=== PATIENT | female | born 1965 ===

== ENCOUNTER → 2020-08-08 15:00 | Outpatient (CLI) | payer OTHER | END | disposition home or self-care (01) | LOC: PPH VACUNA 15:00 | DX: Z23 Encounter for immunization (principal) ==

== ENCOUNTER 2020-08-30 08:00 | Outpatient (CLI) | payer OTHER | END 2020-08-30 08:30 | disposition home or self-care (01) | LOC: PPH VACUNA 08:00 | DX: Z23 Encounter for immunization (principal) ==

== ENCOUNTER 2024-05-31 14:45 | Inpatient (IN) | payer OTHER ==
[~2024-05-31] VITALS: Ht 152.4 cm; Wt 40.8 kg
[2024-05-31 15:38] LABS: ABG PO2 94.1 mmHg (80-100); ABG pCO2 20.7 mmHg (35-45); BASE EXCESS 0.5 mmol/l; BICARBONATE 19.7 mmol/l (23-25); SaO2 98.5 %; Tco2 20.4 mmol/l
[2024-05-31 15:58] LABS: ABG PH 7.596 (7.35-7.45); allen test SATISFACTORY; o2 21 %; puncture site RADIAL LEFT
--- NOTE | 2024-05-31 16:02 | NUR ---
SE RECIBE PTE ALERTA Y ORIENTADA X3 EN COMPANIA DE PARAMEDICOS A UNIDAD DE CRITICO. PTE REFIERE VENIR POR DOLOR DE CUERPO GENERALIZADO. SE DEJUAN SV SPO2 99% AL MOMENTO DE TRIAGE. SE UBICA A PTE CONECTADA A MONITOR CARDIACO Y OXIMETRIA DE PULSO CONTINUA. SE REALIZA EKG PUL 124. SE PRESENTA EKG A DRA. HERRERA. SE NOTIFICAN ABG A TERAPISTA ALDO.
[2024-05-31] MEDS ORDERED: 0.9 % SODIUM CHLORIDE 1,000 ML IV STA (16:46)
[2024-05-31 17:18] LABS: MEAN CELL VOLUME 115.3 fL (80.00-100.00); MEAN CORPUSCULAR HEMOGLOBIN 36.6 pg (27.00-32.0); MEAN CORPUSCULAR HGB CONC 31.9 g/dl (32.0-36.0); PLATELET COUNT 513 K/uL (150-450); RED BLOOD COUNT 1.53 M/uL (4.00-6.00); RED CELL DISTRIBUTION WIDTH 21.7 % (11.5-14.5)
[2024-05-31 17:20] LABS: HEMATOCRIT 17.6 % (36.0-45.00); HEMOGLOBIN 5.6 g/dL (12.0-15.00)
[2024-05-31 17:40] LABS: ALBUMIN 2.6 gm/dL (3.4-5.0); BILIRUBIN TOTAL 1.78 mg/dL (0.3-1.2); CALCIUM 8.3 mg/dL (8.5-10.1); CREATININE SERUM 0.66 mg/dL (0.55-1.02); GFR 92.64; GLOBULINA 6.5 G/DL (2.4-3.5); POTASSIUM 4.32 mEq/L (3.5-5.1); TOTAL PROTEIN 9.1 gm/dL (6.4-8.2)
[2024-05-31] MEDS ORDERED: THIAMINE HCL 100 MG/ML 2 ML VIAL IV SCH (18:59)
[2024-05-31] MEDS ORDERED: CEFTRIAXONE SODIUM 1,000 MG in DEXTROSE 5 % IN WATER 100 ML IV ONE (19:00)
[2024-05-31] MEDS ORDERED: PANTOPRAZOLE SODIUM 40 MG/VIAL VIAL IV ONE (19:00)
[2024-05-31] MEDS ORDERED: OSELTAMIVIR PHOSPHATE 75 MG CAPSULE PO SCH (19:01)
[2024-05-31] MEDS ORDERED: ONDANSETRON HCL 4 MG in 0.9 % SODIUM CHLORIDE 50 ML IV PRN (19:15)
[2024-05-31] MEDS ORDERED: 0.9 % SODIUM CHLORIDE 1,000 ML IV SCH (19:15)
[2024-05-31] MEDS ORDERED: PANTOPRAZOLE SODIUM 80 MG in 0.9 % SODIUM CHLORIDE 100 ML IV SCH (19:15)
[2024-05-31 20:20] LABS: BILIRUBIN TOTAL 1.47 mg/dL (0.3-1.2); BILIRUBIN,CONJUGATED 0.4 mg/dL (0.0-0.2); BILIRUBIN,UNCONJUGATED 1.07 mg/dL (0.0-0.6)
[2024-05-31 20:27] LABS: C-REACTIVE PROTEIN 2.28 MG/DL (0.00-0.29)
[2024-05-31 20:29] LABS: INR 1.23; PARTIAL THROMBOPLASTIN TIME 27.7 SECONDS (22.0-34.0); PROTHROMBIN TIME 13.2 SECONDS (9.0-11.5)
[2024-05-31] MEDS ORDERED: THIAMINE HCL 100 MG/ML 2 ML VIAL ONE (22:17)
[2024-05-31] MEDS ORDERED: OSELTAMIVIR PHOSPHATE 75 MG CAPSULE PO ONE (22:17)
[2024-05-31 23:37] VITALS: BP 111/64; O2SAT 100
[2024-06-01] VITALS (14 sets, daily range): BP systolic 85–150; BP diastolic 53–87; O2SAT 96–100
[2024-06-01 03:24] LABS: URINE APPEARANCE Clear; URINE BILIRRUBIN Negative (NEGATIVE); URINE BLOOD Negative; URINE COLOR Yellow; URINE GLUCOSE Negative (NEGATIVE); URINE KETONE Negative (NEGATIVE); URINE LEUKOCYTE Negative; URINE NITRATE Negative; URINE PROTEIN Trace (NEGATIVE)
[2024-06-01 03:28] LABS: URINE BACTERIA 48.9 uL (0.0-1933); URINE EPITHELIAL CELLS 11.7 uL (0.0-38.8); URINE RBC 3.3 uL (0.0-20.8); URINE WBC 3.4 uL (0.0-23.2)
[2024-06-01 03:36] LABS: URINE CAST 0.29 uL (0.0-1.40)
[2024-06-01] MEDS ORDERED: CEFTRIAXONE SODIUM 2,000 MG in 0.9 % SODIUM CHLORIDE 100 ML IV SCH (09:00)
[2024-06-01] MEDS ORDERED: CHLORDIAZEPOXIDE HCL 25 MG CAPSULE PO SCH (09:00)
[2024-06-01] MEDS ORDERED: DIVALPROEX SODIUM 250 MG TABLET.DR PO SCH (09:00)
[2024-06-01] MEDS ORDERED: IRON FUM,PS/FOLIC/BCOMP,C NO.9 1 CAP CAPSULE PO SCH (09:00)
[2024-06-01 10:36] LABS: FOLIC ACID > 20.00 ng/ml (4.78-20)
[2024-06-01 14:12] LABS: C-REACTIVE PROTEIN 2.4 MG/DL (0.00-0.29)
[2024-06-01] MEDS ORDERED: NOREPINEPHRINE BITARTRATE 8 MG in DEXTROSE 5 % IN WATER 250 ML IV SCH (15:00)
[2024-06-01] MEDS ORDERED: METHYLPREDNISOLONE SOD SUCC 125 MG VIAL IV STA (19:05)
[2024-06-01] MEDS ORDERED: METHYLPREDNISOLONE SOD SUCC 125 MG VIAL ONE (21:42)
[2024-06-01 22:12] LABS: ob NEGATIVE (NEGATIVE)
[2024-06-02] MEDS ORDERED: METHYLPREDNISOLONE SOD SUCC 40 MG VIAL IV SCH
[2024-06-02 04:00] VITALS: BP 105/70
[2024-06-02 07:23] VITALS: BP 105/67; O2SAT 98
[2024-06-02 07:57] LABS: PH,URINE 6.5 (5.0-8.0); URINE APPEARANCE Clear; URINE BILIRRUBIN Negative (NEGATIVE); URINE BLOOD Moderate; URINE COLOR Yellow; URINE GLUCOSE Negative (NEGATIVE); URINE KETONE Negative (NEGATIVE); URINE LEUKOCYTE Negative; URINE NITRATE Negative; URINE PROTEIN Trace (NEGATIVE)
[2024-06-02 07:58] LABS: URINE BACTERIA 127.2 uL (0.0-1933); URINE EPITHELIAL CELLS 4.1 uL (0.0-38.8); URINE RBC 261.1 uL (0.0-20.8); URINE WBC 11.6 uL (0.0-23.2)
[2024-06-02 08:01] LABS: URINE CAST 0.88 uL (0.0-1.40)
[2024-06-02 12:00] VITALS: BP 99/64; O2SAT 97
[2024-06-02 15:02] VITALS: BP 107/69; O2SAT 95
[2024-06-02 16:35] LABS: ob POSITIVE (NEGATIVE)
[2024-06-02 20:00] VITALS: BP 104/65; O2SAT 95
[2024-06-02 23:08] VITALS: BP 111/73
[2024-06-03 03:57] VITALS: BP 113/73; O2SAT 100
[2024-06-03 07:16] LABS: MEAN CELL VOLUME 118.3 fL (80.00-100.00); MEAN CORPUSCULAR HGB CONC 31.3 g/dl (32.0-36.0); PLATELET COUNT 314 K/uL (150-450); RED BLOOD COUNT 1.17 M/uL (4.00-6.00)
[2024-06-03 07:25] VITALS: BP 136/84; O2SAT 100
[2024-06-03 07:31] LABS: MEAN CORPUSCULAR HEMOGLOBIN 37.6 pg (27.00-32.0)
[2024-06-03 07:32] LABS: HEMATOCRIT 13.9 % (36.0-45.00); HEMOGLOBIN 4.4 g/dL (12.0-15.00); RED CELL DISTRIBUTION WIDTH 26.4 % (11.5-14.5)
[2024-06-03] MEDS ORDERED: EPOETIN ALFA-EPBX 10,000 UNIT/ML VIAL (Retacrit) SUBCUTANEO SCH (09:00)
[2024-06-03] MEDS ORDERED: FOLIC ACID 1 MG TABLET PO SCH (09:00)
[2024-06-03 10:05] LABS: IMMUNOGLOBULIN A 754 mg/dL (87-352); IMMUNOGLOBULIN G 3074 mg/dL (586-1602); IMMUNOGLOBULIN M 191 mg/dL (26-217)
[2024-06-03] MEDS ORDERED: ACETAMINOPHEN 500 MG GEL..CAP PO ONE (11:34)
[2024-06-03] MEDS ORDERED: ACETAMINOPHEN 500 MG GEL..CAP PO PRN (11:45)
[2024-06-03] MEDS ORDERED: METHYLPREDNISOLONE SOD SUCC 40 MG VIAL IV SCH (11:45)
[2024-06-03] MEDS ORDERED: DIPHENHYDRAMINE HCL 50 MG/ML VIAL 1ML IV SCH (11:45)
[2024-06-03 12:00] VITALS: BP 113/70
[2024-06-03] MEDS ORDERED: METHYLPREDNISOLONE SOD SUCC 40 MG VIAL IV NR (12:00)
[2024-06-03] MEDS ORDERED: DIPHENHYDRAMINE HCL 50 MG/ML VIAL 1ML IV NR (12:00)
[2024-06-03] MEDS ORDERED: SODIUM CL 0.9% 100 ML IV.SOLN IV ONE (12:20)
[2024-06-03 14:05] LABS: a:g ratio 0.6 (0.7-1.7); alpha 1 g 0.2 g/dL (0.0-0.4); alpha 2 0.4 g/dL (0.4-1.0); beta g 0.9 g/dL (0.7-1.3); globulin t 4.6 g/dL (2.2-3.9); kappa lambda r 1.12 (0.26-1.65); kappa light 151.3 mg/L (3.3-19.4); lambda light 134.7 mg/L (5.7-26.3); prot total 7.2 g/dL (6.0-8.5)
[2024-06-03 15:25] VITALS: O2SAT 98
[2024-06-03 20:00] VITALS: BP 141/90
[2024-06-03 23:13] VITALS: BP 144/91; O2SAT 100
[2024-06-04 04:03] VITALS: BP 151/97; O2SAT 100
[2024-06-04 07:12] VITALS: BP 130/90; O2SAT 100
[2024-06-04 10:46] LABS: HEMATOCRIT 44.5 % (36.0-45.00); HEMOGLOBIN 15.6 g/dL (12.0-15.00); MEAN CELL VOLUME 91.6 fL (80.00-100.00); MEAN CORPUSCULAR HEMOGLOBIN 32.1 pg (27.00-32.0); PLATELET COUNT 205 K/uL (150-450); RED BLOOD COUNT 4.86 M/uL (4.00-6.00)
[2024-06-04 10:47] LABS: RED CELL DISTRIBUTION WIDTH 20.1 % (11.5-14.5)
[2024-06-04] MEDS ORDERED: PANTOPRAZOLE SODIUM 40 MG TABLET.DR PO NR (11:00)
[2024-06-04 12:00] VITALS: BP 132/92; O2SAT 95
[2024-06-04 15:33] VITALS: BP 138/103; BP 140/60; BP 142/118
[2024-06-04] MEDS ORDERED: PANTOPRAZOLE SODIUM 40 MG TABLET.DR PO SCH (17:00)
[2024-06-04 18:04] LABS: BETA-2-MICROGLOBULINA 3.3 mg/L (0.6-2.4)
[2024-06-04 20:00] VITALS: BP 122/55; O2SAT 100
[2024-06-04] MEDS ORDERED: METHYLPREDNISOLONE SOD SUCC 40 MG VIAL IV SCH (21:00)
[2024-06-04 23:08] VITALS: BP 118/80; O2SAT 100
[2024-06-05 04:00] VITALS: BP 130/78; O2SAT 100
[2024-06-05 07:20] VITALS: BP 135/90; O2SAT 100
[2024-06-05 08:05] LABS: HEMATOCRIT 46.1 % (36.0-45.00); HEMOGLOBIN 15.9 g/dL (12.0-15.00); MEAN CORPUSCULAR HEMOGLOBIN 32.4 pg (27.00-32.0); MEAN CORPUSCULAR HGB CONC 34.4 g/dl (32.0-36.0); PLATELET COUNT 159 K/uL (150-450); RED BLOOD COUNT 4.91 M/uL (4.00-6.00); RED CELL DISTRIBUTION WIDTH 21.4 % (11.5-14.5)
[2024-06-05] MEDS ORDERED: PYRIDOXINE HCL 100 MG TABLET PO SCH (09:00)
[2024-06-05 09:53] LABS: ALBUMIN 2.5 gm/dL (3.4-5.0); BILIRUBIN TOTAL 0.65 mg/dL (0.3-1.2); CALCIUM 8.5 mg/dL (8.5-10.1); CREATININE SERUM 0.55 mg/dL (0.55-1.02); GFR 114.34; GLOBULINA 5.2 G/DL (2.4-3.5); TOTAL PROTEIN 7.7 gm/dL (6.4-8.2)
[2024-06-05 10:27] LABS: POTASSIUM 2.56 mEq/L (3.5-5.1)
[2024-06-05] MEDS ORDERED: POTASSIUM CHLORIDE IN WATER 40 MEQ/100 ML PIGGYBAG IV SCH (16:00)
[2024-06-05 17:37] VITALS: BP 141/95; O2SAT 98
[2024-06-06 02:54] VITALS: BP 158/100
[2024-06-06 07:23] LABS: CALCIUM 8.6 mg/dL (8.5-10.1); CREATININE SERUM 0.46 mg/dL (0.55-1.02); GFR 140.52; POTASSIUM 3.15 mEq/L (3.5-5.1)
[2024-06-06 09:42] VITALS: BP 140/93
[2024-06-06] MEDS ORDERED: POTASSIUM CHLORIDE 20MEQ/100ML H2O PB IV SCH (12:00)
[2024-06-06 18:19] VITALS: BP 159/89; O2SAT 99
[2024-06-07 01:17] VITALS: BP 124/89; O2SAT 98
[2024-06-07 06:41] LABS: HEMATOCRIT 44.9 % (36.0-45.00); HEMOGLOBIN 15.5 g/dL (12.0-15.00); MEAN CELL VOLUME 93.6 fL (80.00-100.00); MEAN CORPUSCULAR HEMOGLOBIN 32.3 pg (27.00-32.0); MEAN CORPUSCULAR HGB CONC 34.5 g/dl (32.0-36.0); PLATELET COUNT 142 K/uL (150-450)
[2024-06-07 06:48] LABS: RED CELL DISTRIBUTION WIDTH 25.1 % (11.5-14.5)
[2024-06-07 07:01] LABS: CALCIUM 8.9 mg/dL (8.5-10.1); CREATININE SERUM 0.48 mg/dL (0.55-1.02); GFR 133.78; POTASSIUM 3.04 mEq/L (3.5-5.1)
[2024-06-07 08:55] VITALS: BP 144/90
[2024-06-07] MEDS ORDERED: POTASSIUM CHLORIDE 20MEQ/100ML H2O PB IV SCH (10:00)
[2024-06-07 16:49] VITALS: BP 125/90; O2SAT 94
[2024-06-08 01:29] VITALS: BP 145/87
[2024-06-08] MEDS ORDERED: AMLODIPINE BESYLATE 5 MG TABLET PO STA (09:12)
[2024-06-08] MEDS ORDERED: ENOXAPARIN SODIUM 40 MG/0.4 ML SYRINGE SUBCUTANEO SCH (09:13)
[2024-06-08] MEDS ORDERED: ASPIRIN 81 MG TAB.CHEW PO SCH (09:13)
[2024-06-08] MEDS ORDERED: NITROGLYCERIN 1 INCH OINT..GM. TD SCH (09:14)
[2024-06-08 10:00] VITALS: BP 146/90; O2SAT 100
[2024-06-08 17:56] VITALS: BP 140/90; O2SAT 98
[2024-06-09 02:08] VITALS: BP 121/86
[2024-06-09 07:33] LABS: HEMATOCRIT 45.6 % (36.0-45.00); HEMOGLOBIN 15.6 g/dL (12.0-15.00); MEAN CORPUSCULAR HEMOGLOBIN 32.4 pg (27.00-32.0); MEAN CORPUSCULAR HGB CONC 34.1 g/dl (32.0-36.0); PLATELET COUNT 164 K/uL (150-450); RED BLOOD COUNT 4.81 M/uL (4.00-6.00)
[2024-06-09 07:41] LABS: RED CELL DISTRIBUTION WIDTH 25.5 % (11.5-14.5)
[2024-06-09 08:00] VITALS: BP 184/100
[2024-06-09] MEDS ORDERED: AMLODIPINE BESYLATE 5 MG TABLET PO SCH (09:00)
[2024-06-09] MEDS ORDERED: ENALAPRILAT DIHYDRATE 1.25 MG/ML VIAL IV PRN (13:45)
[2024-06-09 19:43] VITALS: BP 133/85; O2SAT 95
[2024-06-10 04:06] VITALS: BP 120/60
[2024-06-10 09:17] VITALS: BP 132/72
[2024-06-10 16:07] LABS: CALCIUM 8.7 mg/dL (8.5-10.1); CREATININE SERUM 0.55 mg/dL (0.55-1.02); GFR 114.34; POTASSIUM 3.8 mEq/L (3.5-5.1)
[2024-06-10 18:49] VITALS: BP 116/82; O2SAT 96
[2024-06-11 01:24] VITALS: BP 90/60; O2SAT 98
[2024-06-11 07:57] LABS: PH,URINE 7.5 (5.0-8.0); URINE APPEARANCE Turbid; URINE BILIRRUBIN Negative (NEGATIVE); URINE BLOOD Large; URINE COLOR Red; URINE GLUCOSE Negative (NEGATIVE); URINE KETONE Negative (NEGATIVE); URINE LEUKOCYTE Small; URINE NITRATE Negative; URINE PROTEIN 30 (NEGATIVE)
[2024-06-11 08:01] LABS: URINE BACTERIA 199.5 uL (0.0-1933); URINE EPITHELIAL CELLS 5.8 uL (0.0-38.8); URINE WBC 59.9 uL (0.0-23.2)
[2024-06-11 08:15] LABS: HEMATOCRIT 44.3 % (36.0-45.00); HEMOGLOBIN 14.8 g/dL (12.0-15.00); MEAN CELL VOLUME 95.2 fL (80.00-100.00); MEAN CORPUSCULAR HEMOGLOBIN 31.9 pg (27.00-32.0); MEAN CORPUSCULAR HGB CONC 33.5 g/dl (32.0-36.0); PLATELET COUNT 183 K/uL (150-450); RED BLOOD COUNT 4.65 M/uL (4.00-6.00); RED CELL DISTRIBUTION WIDTH 24.6 % (11.5-14.5)
[2024-06-11 08:16] VITALS: BP 98/68
[2024-06-11 08:42] LABS: URINE CAST 0.29 uL (0.0-1.40); URINE RBC > 10558.9 uL (0.0-20.8)
[2024-06-11 09:01] LABS: ALBUMIN 2.6 gm/dL (3.4-5.0); BILIRUBIN TOTAL 0.51 mg/dL (0.3-1.2); CALCIUM 8.9 mg/dL (8.5-10.1); CREATININE SERUM 0.6 mg/dL (0.55-1.02); GFR 103.41; GLOBULINA 4.3 G/DL (2.4-3.5); POTASSIUM 4.18 mEq/L (3.5-5.1); TOTAL PROTEIN 6.9 gm/dL (6.4-8.2)
[2024-06-11 18:05] VITALS: BP 130/85; O2SAT 96
[2024-06-11 22:32] VITALS: BP 124/82; O2SAT 97
[2024-06-12 01:35] VITALS: BP 115/65; O2SAT 97
[2024-06-12 09:17] VITALS: BP 106/74
[2024-06-12 17:33] VITALS: BP 132/80; O2SAT 97
[2024-06-13 00:48] VITALS: BP 116/73; O2SAT 96
[2024-06-13 07:08] LABS: HEMATOCRIT 40.7 % (36.0-45.00); HEMOGLOBIN 13.8 g/dL (12.0-15.00); MEAN CELL VOLUME 95.2 fL (80.00-100.00); MEAN CORPUSCULAR HEMOGLOBIN 32.4 pg (27.00-32.0); PLATELET COUNT 153 K/uL (150-450); RED BLOOD COUNT 4.27 M/uL (4.00-6.00); RED CELL DISTRIBUTION WIDTH 23.9 % (11.5-14.5)
[2024-06-13 07:42] LABS: ALBUMIN 2.4 gm/dL (3.4-5.0); BILIRUBIN TOTAL 0.35 mg/dL (0.3-1.2); CALCIUM 8.5 mg/dL (8.5-10.1); CREATININE SERUM 0.41 mg/dL (0.55-1.02); GFR 160.47; POTASSIUM 3.84 mEq/L (3.5-5.1); TOTAL PROTEIN 6.4 gm/dL (6.4-8.2)
[2024-06-13 16:20] VITALS: BP 124/88
[2024-06-13] MEDS ORDERED: PREDNISONE 20 MG TABLET PO NR (18:00)
[2024-06-14 01:27] VITALS: BP 119/84; O2SAT 94
[2024-06-14 08:47] VITALS: BP 119/86; O2SAT 99
[2024-06-14] MEDS ORDERED: PREDNISONE 20 MG TABLET PO SCH (09:00)
[2024-06-14 17:43] VITALS: BP 137/90; O2SAT 96
[2024-06-15 02:41] VITALS: BP 132/92; O2SAT 97
[2024-06-15 09:08] LABS: COMPLEMENT C3 103 mg/dL (82-167); COMPLEMENT C4 11 mg/dL (12-38)
[2024-06-15 09:54] VITALS: BP 162/103; O2SAT 98
[2024-06-15 18:29] VITALS: BP 132/96
[2024-06-16 01:46] VITALS: BP 124/85; O2SAT 97
[2024-06-16 04:58] VITALS: BP 131/85; O2SAT 98
[2024-06-16 08:11] VITALS: BP 129/86
== END 2024-06-16 09:43 | disposition home or self-care (01) | DRG 299 ==
LOC: ER 14:45 → ICU-2 19:53 → ICU 06-01 20:15 → MEDJ 06-05 10:29
PROVIDERS: Emergency Medicine; General Practice; Internal Medicine; Internal Medicine Hematology & Oncology; Internal Medicine Infectious Disease; ADMIT Student in an Organized Health Care Education/Training Program; ATTEND Student in an Organized Health Care Education/Training Program
PROC: 8E0ZXY6 Isolation (ICD-10-PCS; principal; 2024-05-31)
PROC: BW21YZZ Computerized Tomography (CT Scan) of Abdomen and Pelvis using Other Contrast (ICD-10-PCS; 2024-05-31)
PROC: B44GZZZ Ultrasonography of Left Lower Extremity Arteries (ICD-10-PCS; 2024-06-03)
PROC: B54CZZZ Ultrasonography of Left Lower Extremity Veins (ICD-10-PCS; 2024-06-03)
PROC: 30233N1 Transfusion of Nonautologous Red Blood Cells into Peripheral Vein, Percutaneous Approach (ICD-10-PCS; 2024-06-03)
PROC: BW28ZZZ Computerized Tomography (CT Scan) of Head (ICD-10-PCS; 2024-06-06)
PROC: B54PZZZ Ultrasonography of Bilateral Upper Extremity Veins (ICD-10-PCS; 2024-06-08)
PROC: B34KZZZ Ultrasonography of Bilateral Upper Extremity Arteries (ICD-10-PCS; 2024-06-08)
PROC: B24BZZZ Ultrasonography of Heart with Aorta (ICD-10-PCS; 2024-06-09)
DX: I70.262 Atherosclerosis of native arteries of extremities with gangrene, left leg (principal); I63.89 Other cerebral infarction; D59.19 Other autoimmune hemolytic anemia; K92.2 Gastrointestinal hemorrhage, unspecified; D59.11 Warm autoimmune hemolytic anemia; D64.9 Anemia, unspecified; F10.20 Alcohol dependence, uncomplicated; K70.10 Alcoholic hepatitis without ascites; J10.2 Influenza due to other identified influenza virus with gastrointestinal manifestations; F14.10 Cocaine abuse, uncomplicated; E87.6 Hypokalemia; R41.82 Altered mental status, unspecified; M19.90 Unspecified osteoarthritis, unspecified site